=== PATIENT | female | born 1990 | race Caucasian/White ===

== ENCOUNTER 2017-12-20 10:33 | Inpatient (IN) | payer BC ==
--- NOTE | 2017-12-20 10:50 | PCM.LDHP ---
<CurryBishopRhett - Last Filed: 12/20/17 12:29> L&D History of Present Illness - General Date of Service: 12/20/17 Admit Problem/Dx: Admission Diagnosis/Problem Admission Diagnosis/Problem Source of Information: Patient History Limitations: Reports: No Limitations - History of Present Illness Introduction:: Claire Mccormick is a pleasant 27 year old female who presents with contractions lasting every 5 minutes that she reports started early this AM. Timing/Duration: Reports: minutes:, sudden onset, constant/continuous, getting worse Location, : Reports: Lower back Quality: Reports: Ache, Throbbing Severity: Moderate Pain Score: 3 Context: Reports: Other Improves with: Reports: None Worsens with: Reports: Movement - Related Data Allergies/Adverse Reactions: Allergies Allergy/AdvReac Type Severity Reaction Status Date / Time No Known Allergies Allergy Verified 12/20/17 12:29 Home Medications: Home Meds Ferrous Sulfate 325 mg PO DAILY 12/20/17 [History] Pnv No.95/Ferrous Fum/Folic AC [ Multivitamin Tablet] 1 each PO DAILY [History] Promethazine HCl 12.5 - 25 mg PO Q6H 12/20/17 [History] hydrOXYzine HCl [Atarax] 25 mg PO QID 12/20/17 [History] Past Medical History HEENT History: Reports: None Respiratory History: Reports: Asthma (Patient reports a history of asthma which she uses an albuterol inhaler to treat symptoms) Gastrointestinal History: Reports: Cholelithiasis (Patient reports a large gallstone was noted on her 14 week ultra sound), Hemorrhoids, Other (See Below) (Patient reports constipation lasting the last 2 days and she reports she believes it may be related to her hemorrhoids.) : 5 Para: 3 LMP (Approximate): Unknown Other OB/BYN History: Patient is who presents at 38 weeks and 4 days gestation. H&P Review of Systems - Review of Systems: General: Reports: Weakness, Fatigue HEENT: Reports: No Symptoms Pulmonary: Reports: Shortness of Breath Cardiovascular: Reports: Palpitations (Patient reports she was recently prescribe an albuterol inhaler for asthma and reports that after she takes her dose for symptoms she will notice her heart beginning to race. She reports these episodes improve within minutes.) Gastrointestinal: Reports: Constipation, Hematochezia (Patient reports hemorrhoids and indicates the pain caused from these has led to her not passing any stool in the last 2 days.) Genitourinary: Reports: No Symptoms Musculoskeletal: Reports: Back Pain (Patient reports pain in her lower back with the onset of contractions. She describes the pain as sharp and ache, rates it a 3 out of 10, and denies any radiation.), Muscle Pain, Muscle Stiffness Skin: Reports: Change in Color Psychiatric: Reports: No Symptoms Neurological: Reports: No Symptoms Hematologic/Lymphatic: Reports: No Symptoms Immunologic: Reports: No Symptoms L&D Exam - OB Specific Fundal Height In cm: 38 Contraction Duration (sec): 60 sec Contraction Frequency (min): 5 min Contraction Intensity: Moderate to Strong Movement: Active Heart Tones: Present Heart Tones per Min: 130 Heart Rate (FHR) Variability: Moderate (6-25 bmp) Presentation: Vertex - Garcia Score Garcia Score Cervix Position: Posterior Garcia Score Consistency: Soft Garcia Score Effacement: 51-70% Garcia Score Dilation: 1-2 cm Garcia Score Infant's Station: -1 ,0 Garcia Score Total: 7 - Exam General: Alert, Oriented HEENT: Conjunctiva Clear, Hearing Intact, Mucosa Moist & [place], PERRLA Lungs: Clear to Auscultation, Normal Respiratory Effort Cardiovascular: Regular Rate, Regular Rhythm GI/Abdominal Exam: Soft, Non-Tender Rectal Exam: Hemorrhoids Extremities: Normal Inspection, Non-Tender, No Pedal Edema Skin: Warm, Dry, Intact Neurological: Cranial Nerves Intact, Reflexes Equal Bilateral Psychiatric: Alert, Normal Affect, Normal Mood - Problem List (1) 38 weeks gestation of SNOMED Code(s): 85700939 ICD Code: Z3A.38 - 38 WEEKS GESTATION OF Status: Acute Current Visit: Yes (2) Hemorrhoid SNOMED Code(s): 30071274 ICD Code: K64.9 - UNSPECIFIED HEMORRHOIDS Status: Acute Current Visit: Yes (3) Cholelithiasis SNOMED Code(s): 154658698 ICD Code: K80.20 - CALCULUS OF GALLBLADDER W/O CHOLECYSTITIS W/O OBSTRUCTION Status: Acute Current Visit: Yes (4) Rh negative status during , third trimester, single gestation SNOMED Code(s): 609097330 ICD Code: O09.893 - SUPERVISION OF OTHER HIGH RISK PREGNANCIES, THIRD TRIMESTER; Z67.91 - UNSPECIFIED BLOOD TYPE, RH NEGATIVE Status: Acute Current Visit: Yes Problem List Initiated/Reviewed/Updated: No Assessment/Plan Comment:: Labor and delivery. <Cisco Kidd - Last Filed: 12/20/17 13:47> L&D History of Present Illness - General Admit Problem/Dx: Admission Diagnosis/Problem Admission Diagnosis/Problem - History of Present Illness Introduction:: YVETTE 12/30/17 EGA 38w4d No H/O gush of fluid, no bleeding. GBS negative Social & Family History - Tobacco Use Smoking Status *Q: Former Smoker (Quit one half years ago.) - Recreational Drug Use Recreational Drug Use: No Drug Use in Last 12 Months: No Recreational Drug Type: Reports: Amphetamines (Speed) (Used in the past none during this .) H&P Review of Systems - Review of Systems: Review Of Systems: See Below L&D Exam - Exam Exam: See Below - Vital Signs Vital Signs: Last Vital Signs Temp 98.4 F 12/20/17 13:00 Pulse 114 H 12/20/17 13:00 Resp 20 12/20/17 13:00 BP 133/75 12/20/17 13:00 Pulse Ox - Patient Data Lab Results Last 24 hrs: Laboratory Results - last 24 hr 12/20/17 Range/Units 13:28 WBC 8.09 (3.98-10.04) K/mm3 RBC 4.28 (3.98-5.22) M/mm3 Hgb 11.0 L (11.2-15.7) gm/L Hct 33.5 L (34.1-44.9) % MCV 78.3 L (79.4-94.8) fl MCH 25.7 (25.6-32.2) pg MCHC 32.8 (32.2-35.5) g/dl RDW Std Deviation 43.0 (36.4-46.3) fL Plt Count 281 (182-369) K/mm3 MPV 10.4 (9.4-12.3) fl Neut % (Auto) 78.2 H (34.0-71.1) % Lymph % (Auto) 13.7 L (19.3-51.7) % [place] % (Auto) 5.7 (4.7-12.5) % Eos % (Auto) 1.4 (0.7-5.8) Baso % (Auto) 0.4 (0.1-1.2) % Neut # (Auto) 6.33 H (1.56-6.13) K/mm3 Lymph # (Auto) 1.11 L (1.18-3.74) K/mm3 [place] # (Auto) 0.46 H (0.24-0.36) K/mm3 Eos # (Auto) 0.11 (0.04-0.36) K/mm3 Baso # (Auto) 0.03 (0.01-0.08) K/mm3 Result Diagrams: 12/20/17 13:28 Orders Last 24hrs: Active Orders 24 hr Category Date Time Status Patient Status Manage Transfer [TRANSFER] Routine ADT 12/20/17 12:56 Active Activity as Tolerated [RC] PFP Care 12/20/17 13:17 Active Communication Order [RC] ASDIRECTED Care 12/20/17 13:17 Active Heart Tones [RC] ASDIRECTED Care 12/20/17 13:17 Active Notify Provider [RC] PFP Care 12/20/17 13:17 Active Notify Provider [RC] PRN Care 12/20/17 13:17 Active Peripheral IV Care [RC] . DIRECTED Care 12/20/17 13:17 Active Vital Signs [RC] PER UNIT ROUTINE Care 12/20/17 13:17 Active Regular Diet [DIET] Diet 12/20/17 Dinner Active Calcium Carbonate [Tums] Med 12/20/17 13:17 Active 1,000 mg PO Q2H PRN Lactated Ringers [Ringers, Lactated] 1,000 ml Med 12/20/17 13:30 Active IV ASDIRECTED Lidocaine 1% [Xylocaine 1%] Med 12/20/17 13:17 Active 50 ml INJECT ONETIME PRN Oxytocin/Lactated Ringers [Pitocin in LR 10 Units/1,000 Med 12/20/17 13:30 Active ML] 10 unit in 1,000 ml IV .CONTINUOUS Oxytocin/Lactated Ringers [Pitocin in LR 10 Units/1,000 Med 12/20/17 13:45 Active ML] 10 unit in 1,000 ml IV TITRATE Sodium Chloride 0.9% [Saline Flush] Med 12/20/17 13:17 Active 10 ml FLUSH ASDIRECTED PRN Electronic Heart Tones Ext w TOCO [WOMSER] Oth 12/20/17 13:17 Ordered Routine Electronic Heart Tones Internal [WOMSER] Per Unit Oth 12/20/17 13:17 Ordered Routine Peripheral IV Insertion Adult [OM.PC] Routine Oth 12/20/17 13:17 Ordered Resuscitation Status Routine Resus Stat 12/20/17 12:57 Ordered Medication Orders Calcium Carbonate/Glycine (Tums) 1,000 mg PO Q2H PRN PRN Reason: Indigestion Lactated Ringer's (Ringers, Lactated) 1,000 mls @ 100 mls/hr IV ASDIRECTED SRAVANI Last Admin: 12/20/17 13:25 Dose: 100 mls/hr Oxytocin/Lactated Ringer's (Pitocin In Lr 10 Units/1,000 Ml) 10 unit in 1,000 mls @ 500 mls/hr IV .CONTINUOUS SRAVANI Oxytocin/Lactated Ringer's (Pitocin In Lr 10 Units/1,000 Ml) 10 unit in 1,000 mls @ 12 mls/hr IV TITRATE SRAVANI Last Admin: 12/20/17 13:20 Dose: 12 mls/hr Lidocaine HCl (Xylocaine 1%) 50 ml INJECT ONETIME PRN PRN Reason: Breakthrough Pain Sodium Chloride (Saline Flush) 10 ml FLUSH ASDIRECTED PRN PRN Reason: Keep Vein Open Last Admin: 12/20/17 13:25 Dose: 10 ml Assessment/Plan Comment:: Patient was seen, examined by me and discussed with the student.
[2017-12-20] MEDS ORDERED: Oxytocin/Lactated Ringers 10 UNIT/1,000 ML BAG IV ONE (13:06)
[2017-12-20] MEDS ORDERED: Lactated Ringers 1,000 ML ONE (13:06)
[2017-12-20] MEDS ORDERED: Sodium Chloride 0.9% 10 ML Syringe FLUSH PRN ×2 (13:17→19:34)
[2017-12-20] MEDS ORDERED: Calcium Carbonate 500 MG Tab.Chew PO PRN (13:17)
[2017-12-20] MEDS ORDERED: Lidocaine 1% 50 ML MDV INJECT PRN (13:17)
[2017-12-20] MEDS ORDERED: Oxytocin/Lactated Ringers 10 UNIT/1,000 ML BAG IV SCH ×3 (13:30→19:34)
[2017-12-20] MEDS ORDERED: Lactated Ringers 1,000 ML IV SCH ×2 (13:30→19:34)
--- NOTE | 2017-12-20 16:32 | PCM.SN ---
- Free Text/Narrative Note: Initial attempt of amniotomy at 1245 did not produce free flow amnionic fluid. Repeat exam now at extending 25 amniotomy performed clear fluid noted cervix 2- 3 cm dilated 70% effaced posterior soft cephalic presentation.
[2017-12-20] MEDS ORDERED: ePHEDrine 50 MG/ML SDV IVPUSH PRN (17:08)
[2017-12-20] MEDS ORDERED: Ondansetron 4 MG/2 ML SDV IVPUSH PRN ×2 (17:08→19:34)
[2017-12-20] MEDS ORDERED: fentaNYL 100 MCG/2 ML SDV EPIDUR PRN (17:08)
[2017-12-20] MEDS ORDERED: diphenhydrAMINE 50 MG/ML SDV IVPUSH PRN (17:08)
--- NOTE | 2017-12-20 17:11 | PCM.PREANE ---
Preanesthetic Assessment - Procedure Proposed Procedure: Labor Epidural - Anesthesia/Transfusion/Family Hx Anesthesia History: No Prior Anesthesia Family History of Anesthesia Reaction: No Transfusion History: No Prior Transfusion(s) - Review of Systems General: No Symptoms Cardiovascular: Palpitations Gastrointestinal: Other (Heart burn with ) Other: Reports: Thyroid Problems (hypothyroidism on synthroid) - Physical Assessment Pulse: 89 Respiratory Rate: 20 Blood Pressure: 122/68 Vital Signs: Last Vital Signs Temp 36.9 C 12/20/17 13:00 Pulse 89 12/20/17 14:30 Resp 20 12/20/17 13:00 BP 122/68 12/20/17 14:30 Pulse Ox Height: 1.65 m Weight: 98.43 kg ASA Class: 2 Mental Status: Alert & Oriented x3 Airway Class: Mallampati = 1 Dentition: Reports: Normal Dentition (Dentist mentioned a loose tooth on the bottom. None feel loose to Claire. ) Thyro-Mental Finger Breadths: 3 Mouth Opening Finger Breadths: 3 ROM/Head Extension: Full Lungs: Clear to Auscultation, Normal Respiratory Effort Cardiovascular: Regular Rate, Regular Rhythm - Lab Values: Laboratory Last Values WBC 8.09 K/mm3 (3.98-10.04) 12/20/17 13:28 RBC 4.28 M/mm3 (3.98-5.22) 12/20/17 13:28 Hgb 11.0 gm/L (11.2-15.7) L 12/20/17 13:28 Hct 33.5 % (34.1-44.9) L 12/20/17 13:28 MCV 78.3 fl (79.4-94.8) L 12/20/17 13:28 MCH 25.7 pg (25.6-32.2) 12/20/17 13:28 MCHC 32.8 g/dl (32.2-35.5) 12/20/17 13:28 RDW Std Deviation 43.0 fL (36.4-46.3) 12/20/17 13:28 Plt Count 281 K/mm3 (182-369) 12/20/17 13:28 MPV 10.4 fl (9.4-12.3) 12/20/17 13:28 Neut % (Auto) 78.2 % (34.0-71.1) H 12/20/17 13:28 Lymph % (Auto) 13.7 % (19.3-51.7) L 12/20/17 13:28 [place] % (Auto) 5.7 % (4.7-12.5) 12/20/17 13:28 Eos % (Auto) 1.4 (0.7-5.8) 12/20/17 13:28 Baso % (Auto) 0.4 % (0.1-1.2) 12/20/17 13:28 Neut # (Auto) 6.33 K/mm3 (1.56-6.13) H 12/20/17 13:28 Lymph # (Auto) 1.11 K/mm3 (1.18-3.74) L 12/20/17 13:28 [place] # (Auto) 0.46 K/mm3 (0.24-0.36) H 12/20/17 13:28 Eos # (Auto) 0.11 K/mm3 (0.04-0.36) 12/20/17 13:28 Baso # (Auto) 0.03 K/mm3 (0.01-0.08) 12/20/17 13:28 - Allergies Allergies/Adverse Reactions: Allergies Allergy/AdvReac Type Severity Reaction Status Date / Time No Known Allergies Allergy Verified 12/20/17 12:29 - Acknowledgements Anesthesia Type Planned: Epidural Pt an Appropriate Candidate for the Planned Anesthesia: Yes Alternatives and Risks of Anesthesia Discussed w Pt/Guardian: Yes Pt/Guardian Understands and Agrees with Anesthesia Plan: Yes PreAnesthesia Questionnaire HEENT History: Reports: None Cardiovascular History: Reports: None Respiratory History: Reports: Asthma (Patient reports a history of asthma which she uses an albuterol inhaler to treat symptoms) Other Respiratory History: seasonal allergies Gastrointestinal History: Reports: Cholelithiasis (Patient reports a large gallstone was noted on her 14 week ultra sound), Hemorrhoids, Other (See Below) (Patient reports constipation lasting the last 2 days and she reports she believes it may be related to her hemorrhoids.) Genitourinary History: Reports: None [employer] History: Reports: Other OB/BYN History: Patient is who presents at 38 weeks and 4 days gestation. Psychiatric History: Reports: Anxiety, Depression Endocrine/Metabolic History: Reports: Hypothyroidism Hematologic History: Reports: Anemia - Past Surgical History HEENT Surgical History: Reports: None Cardiovascular Surgical History: Reports: None Respiratory Surgical History: Reports: None GI Surgical History: Reports: None Female Surgical History: Reports: None Endocrine Surgical History: Reports: None - SUBSTANCE USE Smoking Status *Q: Former Smoker Tobacco Use Within Last Twelve Months: No Second Hand Smoke Exposure: No Recreational Drug Use History: Yes Recreational Drug Type: Reports: Methamphetamine Recreational Drug Last Use: 2011 - HOME MEDS Home Medications: Home Meds Ferrous Sulfate 325 mg PO DAILY 12/20/17 [History] Pnv No.95/Ferrous Fum/Folic AC [ Multivitamin Tablet] 1 each PO DAILY [History] Promethazine HCl 12.5 - 25 mg PO Q6H 12/20/17 [History] hydrOXYzine HCl [Atarax] 25 mg PO QID 12/20/17 [History] - CURRENT (IN HOUSE) MEDS Current Meds: Current Medications Calcium Carbonate/Glycine (Tums) 1,000 mg PO Q2H PRN PRN Reason: Indigestion Diphenhydramine HCl (Benadryl) 25 mg IVPUSH Q6H PRN PRN Reason: Pruritis Ephedrine Sulfate (Ephedrine Sulfate) 5 mg IVPUSH ASDIRECTED PRN PRN Reason: Hypotension Fentanyl (Sublimaze) 100 mcg EPIDUR ONETIME PRN PRN Reason: Pain Fentanyl/Bupivacaine HCl (Fentanyl/Bupivacaine/Ns 2 Mcg-0.125% 100 Ml) 100 ml EPIDUR ASDIRECTED SRAVANI Lactated Ringer's (Ringers, Lactated) 1,000 mls @ 100 mls/hr IV ASDIRECTED SRAVANI Last Admin: 12/20/17 13:25 Dose: 100 mls/hr Oxytocin/Lactated Ringer's (Pitocin In Lr 10 Units/1,000 Ml) 10 unit in 1,000 mls @ 500 mls/hr IV .CONTINUOUS SRAVANI Oxytocin/Lactated Ringer's (Pitocin In Lr 10 Units/1,000 Ml) 10 unit in 1,000 mls @ 12 mls/hr IV TITRATE SRAVANI Last Infusion: 12/20/17 15:32 Dose: 48 mls/hr Lidocaine HCl (Xylocaine 1%) 50 ml INJECT ONETIME PRN PRN Reason: Breakthrough Pain Ondansetron HCl (Zofran) 4 mg IVPUSH ONETIME PRN PRN Reason: Nausea/Vomiting Sodium Chloride (Saline Flush) 10 ml FLUSH ASDIRECTED PRN PRN Reason: Keep Vein Open Last Admin: 12/20/17 13:25 Dose: 10 ml Discontinued Medications Lactated Ringer's (Ringers, Lactated) Confirm Administered Dose 1,000 mls @ as directed .ROUTE .[employer] ONE Stop: 12/20/17 13:07 Last Admin: 12/20/17 13:25 Dose: Not Given Oxytocin/Lactated Ringer's (Pitocin In Lr 10 Units/1,000 Ml) Confirm Administered Dose 10 unit in 1,000 mls @ as directed IV .[employer] ONE Stop: 12/20/17 13:07 Last Admin: 12/20/17 13:25 Dose: Not Given Oxytocin 10 unit/ Lactated (Ringer's) 1,001 mls @ 12.01 mls/hr IV TITRATE SRAVANI; 2 MUNITS/MIN PRN Reason: Protocol
[2017-12-20] MEDS ORDERED: Bupivacaine/fentaNYL/NS 100 ML Bag EPIDUR SCH (17:15)
--- NOTE | 2017-12-20 19:28 | PCM.DEL ---
L & D Note - General Info Date of Service: 12/20/17 Mother's Due Date: 12/30/17 - Delivery Note Labor: Spontaneous, Augmented by ARM Cervical Ripening Method: Oxytocin Delivery Outcome: Livebirth (Female liveborn right occiput anterior and delivered at 1912 hrs. Thursday12/20/17 Apgars 8/9. Weight 30/4/60 grams/7 lbs. 10 oz.) Delivery Method: Spontaneous Vaginal Delivery-Single Delivery Mode: Spontaneous Type of Forceps Used: NA Presentation: Right Occiput Anterior (EFRAIN) Nuchal Cord: None Prep: Povidone-Iodine (Betadine Anesthesia Type: Epidural Episiotomy Type: None Laceration: None Placenta: Intact, Spontaneous (Delivery at 1916 hrs. Thursday12/20/17 Rdz examined and intact discarded) Cord: 3 Vessels Estimated Blood Loss: 250 Resuscitation Needed: No [place]: Suctioned, Bulb Syringe, Stimulated, Warmed, [place] Used, Warmer Used Provider: Cisco Kidd Score 1 min: 8 Score 5 min: 9 - Patient Data Vitals - Most Recent: Last Vital Signs Temp 98.4 F 12/20/17 13:00 Pulse 89 12/20/17 17:51 Resp 20 12/20/17 17:51 BP 122/68 12/20/17 17:51 Pulse Ox Weight - Most Recent: 217 lb I&O - Last 24 Hours: Intake & Output 12/20/17 12/20/17 12/20/17 06:59 14:59 22:59 Intake Total 1000 Balance 1000 Lab Results Last 24 Hours: Laboratory Results - last 24 hr 12/20/17 Range/Units 13:28 WBC 8.09 (3.98-10.04) K/mm3 RBC 4.28 (3.98-5.22) M/mm3 Hgb 11.0 L (11.2-15.7) gm/L Hct 33.5 L (34.1-44.9) % MCV 78.3 L (79.4-94.8) fl MCH 25.7 (25.6-32.2) pg MCHC 32.8 (32.2-35.5) g/dl RDW Std Deviation 43.0 (36.4-46.3) fL Plt Count 281 (182-369) K/mm3 MPV 10.4 (9.4-12.3) fl Neut % (Auto) 78.2 H (34.0-71.1) % Lymph % (Auto) 13.7 L (19.3-51.7) % [place] % (Auto) 5.7 (4.7-12.5) % Eos % (Auto) 1.4 (0.7-5.8) Baso % (Auto) 0.4 (0.1-1.2) % Neut # (Auto) 6.33 H (1.56-6.13) K/mm3 Lymph # (Auto) 1.11 L (1.18-3.74) K/mm3 [place] # (Auto) 0.46 H (0.24-0.36) K/mm3 Eos # (Auto) 0.11 (0.04-0.36) K/mm3 Baso # (Auto) 0.03 (0.01-0.08) K/mm3 Med Orders - Current: Current Medications Calcium Carbonate/Glycine (Tums) 1,000 mg PO Q2H PRN PRN Reason: Indigestion Diphenhydramine HCl (Benadryl) 25 mg IVPUSH Q6H PRN PRN Reason: Pruritis Ephedrine Sulfate (Ephedrine Sulfate) 5 mg IVPUSH ASDIRECTED PRN PRN Reason: Hypotension Fentanyl (Sublimaze) 100 mcg EPIDUR ONETIME PRN PRN Reason: Pain Last Admin: 12/20/17 17:27 Dose: 100 mcg Fentanyl/Bupivacaine HCl (Fentanyl/Bupivacaine/Ns 2 Mcg-0.125% 100 Ml) 100 ml EPIDUR ASDIRECTED SRAVANI Last Admin: 12/20/17 17:27 Dose: 100 ml Lactated Ringer's (Ringers, Lactated) 1,000 mls @ 100 mls/hr IV ASDIRECTED SRAVANI Last Admin: 12/20/17 13:25 Dose: 100 mls/hr Oxytocin/Lactated Ringer's (Pitocin In Lr 10 Units/1,000 Ml) 10 unit in 1,000 mls @ 500 mls/hr IV .CONTINUOUS SRAVANI Oxytocin/Lactated Ringer's (Pitocin In Lr 10 Units/1,000 Ml) 10 unit in 1,000 mls @ 12 mls/hr IV TITRATE SRAVANI Last Infusion: 12/20/17 15:32 Dose: 48 mls/hr Lidocaine HCl (Xylocaine 1%) 50 ml INJECT ONETIME PRN PRN Reason: Breakthrough Pain Ondansetron HCl (Zofran) 4 mg IVPUSH ONETIME PRN PRN Reason: Nausea/Vomiting Sodium Chloride (Saline Flush) 10 ml FLUSH ASDIRECTED PRN PRN Reason: Keep Vein Open Last Admin: 12/20/17 13:25 Dose: 10 ml Discontinued Medications Lactated Ringer's (Ringers, Lactated) Confirm Administered Dose 1,000 mls @ as directed .ROUTE .STK-[facility] ONE Stop: 12/20/17 13:07 Last Admin: 12/20/17 13:25 Dose: Not Given Oxytocin/Lactated Ringer's (Pitocin In Lr 10 Units/1,000 Ml) Confirm Administered Dose 10 unit in 1,000 mls @ as directed IV .STK-[facility] ONE Stop: 12/20/17 13:07 Last Admin: 12/20/17 13:25 Dose: Not Given Oxytocin 10 unit/ Lactated (Ringer's) 1,001 mls @ 12.01 mls/hr IV TITRATE SRAVANI; 2 MUNITS/MIN PRN Reason: Protocol - Problem List & Annotations (1) Normal delivery at term SNOMED Code(s): 32790916 Code(s): O80 - ENCOUNTER FOR FULL-TERM UNCOMPLICATED DELIVERY Status: Acute Current Visit: Yes (2) 38 weeks gestation of SNOMED Code(s): 40226942 Code(s): Z3A.38 - 38 WEEKS GESTATION OF Status: Acute Current Visit: Yes (3) Cholelithiasis SNOMED Code(s): 701694636 Code(s): K80.20 - CALCULUS OF GALLBLADDER W/O CHOLECYSTITIS W/O OBSTRUCTION Status: Acute Current Visit: Yes (4) Hemorrhoid SNOMED Code(s): 21771905 Code(s): K64.9 - UNSPECIFIED HEMORRHOIDS Status: Acute Current Visit: Yes (5) Rh negative status during , third trimester, single gestation SNOMED Code(s): 231029821 Code(s): O09.893 - SUPERVISION OF OTHER HIGH RISK PREGNANCIES, THIRD TRIMESTER; Z67.91 - UNSPECIFIED BLOOD TYPE, RH NEGATIVE Status: Acute Current Visit: Yes - Problem List Review Problem List Initiated/Reviewed/Updated: No - My Orders Last 24 Hours: My Active Orders 12/20/17 12:56 Patient Status Manage Transfer [TRANSFER] Routine 12/20/17 12:57 Resuscitation Status Routine 12/20/17 13:17 Activity as Tolerated [RC] PFP Communication Order [RC] ASDIRECTED Notify Provider [RC] PFP Notify Provider [RC] PRN Peripheral IV Care [RC] Q2HR Vital Signs [RC] 04,12,20 Calcium Carbonate [Tums] 1,000 mg PO Q2H PRN Lidocaine 1% [Xylocaine 1%] 50 ml INJECT ONETIME PRN Sodium Chloride 0.9% [Saline Flush] 10 ml FLUSH ASDIRECTED PRN Electronic Heart Tones Ext w TOCO [WOMSER] Routine Electronic Heart Tones Internal [WOMSER] Per Unit Routine Peripheral IV Insertion Adult [OM.PC] Routine 12/20/17 13:30 Lactated Ringers [Ringers, Lactated] 1,000 ml IV ASDIRECTED Oxytocin/Lactated Ringers [Pitocin in LR 10 Units/1,000 ML] 10 unit in 1,000 ml IV .CONTINUOUS 12/20/17 13:45 Oxytocin/Lactated Ringers [Pitocin in LR 10 Units/1,000 ML] 10 unit in 1,000 ml IV TITRATE 12/20/17 Dinner Regular Diet [DIET] - Plan Plan:: Patient was seen, examined by me and discussed with the student.
[2017-12-20] MEDS ORDERED: Docusate Sodium 100 MG Cap PO PRN ×2 (19:31→19:41)
[2017-12-20] MEDS ORDERED: Ibuprofen 600 MG Tab PO PRN (19:31)
[2017-12-20] MEDS ORDERED: Witch Hazel Medicated Pads 100/Jar TOP PRN ×2 (19:31→19:41)
[2017-12-20] MEDS ORDERED: Acetaminophen 325 MG Tab PO PRN ×2 (19:31→19:41)
[2017-12-20] MEDS ORDERED: Lanolin 100% Cream 7 GM Tube TOP PRN ×2 (19:31→19:41)
[2017-12-20] MEDS ORDERED: Benzocaine/Menthol 20%-0.5% Spray 56 GM Canister TOP PRN ×2 (19:31→19:41)
[2017-12-20] MEDS ORDERED: Hydrocortisone Acetate 25 MG Supp RECTAL PRN ×3 (19:31→19:41)
[2017-12-20] MEDS ORDERED: Nalbuphine 20 MG/1 ML Amp IVPUSH PRN (19:34)
[2017-12-20] MEDS ORDERED: Oxytocin 10 Units/1 ML SDV IM ONE (19:34)
[2017-12-20] MEDS ORDERED: Bupivacaine 0.25% 10 ML SDV ONE (22:32)
[2017-12-20] MEDS: Ibuprofen 600 MG Tab PO PRN (23:33)
[2017-12-21] MEDS: Ibuprofen 600 MG Tab PO PRN ×2 (05:54→13:56)
--- NOTE | 2017-12-21 07:33 | PCM48HPAN ---
Post Anesthesia Note - EVALUATION WITHIN 48HRS OF ANESTHETIC Vital Signs in Normal Range: Yes Patient Participated in Evaluation: Yes Respiratory Function Stable: Yes Airway Patent: Yes Cardiovascular Function Stable: Yes Hydration Status Stable: Yes Pain Control Satisfactory: Yes Nausea and Vomiting Control Satisfactory: Yes Mental Status Recovered: Yes Pulse Rate: 66 Resp Rate: 20 Temperature: 97.7 F Blood Pressure: 130/75
--- NOTE | 2017-12-21 08:19 | PCM.DCSUM1 ---
Discharge Summary - Hospital Course Free Text/Narrative:: [facility] LIVE L/D Delivery Note Patient Name: JAIRO DEL RIO Date of : 88 Patient Status: Inpatient Attending Provider: Cisco Kidd Date: 12/20/17 19:23 Initialization Date: 12/20/17 19:23 L & D Note - General Info Date of Service: 12/20/17 Mother's Due Date: 12/30/17 - Delivery Note Labor: Spontaneous, Augmented by ARM Cervical Ripening Method: Oxytocin Delivery Outcome: Livebirth (Female liveborn right occiput anterior and delivered at 1912 hrs. Thursday12/20/17 Apgars 8/9. Weight 30/4/60 grams/7 lbs. 10 oz.) Infant Delivery Method: Spontaneous Vaginal Delivery-Single Infant Delivery Mode: Spontaneous Type of Forceps Used: NA Presentation: Right Occiput Anterior (EFRAIN) Nuchal Cord: None Prep: Povidone-Iodine (Betadine Anesthesia Type: Epidural Episiotomy Type: None Laceration: None Placenta: Intact, Spontaneous (Delivery at 1917 hrs. Thursday12/20/17 Rdz examined and intact discarded) Cord: 3 Vessels Estimated Blood Loss: 250 Resuscitation Needed: No [place]: Suctioned, Bulb Syringe, Stimulated, Warmed, [place] Used, Warmer Used Provider: Cisco Kidd Score 1 min: 8 Score 5 min: 9 - Patient Data Vitals - Most Recent: Last Vital Signs Temp 98.4 F 12/20/17 13:00 Pulse 89 12/20/17 17:51 Resp 20 12/20/17 17:51 BP 122/68 12/20/17 17:51 Pulse Ox Weight - Most Recent: 217 lb I&O - Last 24 Hours: Intake & Output 12/20/17 12/20/17 12/20/17 06:59 14:59 22:59 Intake Total 1000 Balance 1000 Lab Results Last 24 Hours: Laboratory Results - last 24 hr 12/20/17 Range/Units 13:28 WBC 8.09 (3.98-10.04) K/mm3 RBC 4.28 (3.98-5.22) M/mm3 Hgb 11.0 L (11.2-15.7) gm/L Hct 33.5 L (34.1-44.9) % MCV 78.3 L (79.4-94.8) fl MCH 25.7 (25.6-32.2) pg MCHC 32.8 (32.2-35.5) g/dl RDW Std Deviation 43.0 (36.4-46.3) fL Plt Count 281 (182-369) K/mm3 MPV 10.4 (9.4-12.3) fl Neut % (Auto) 78.2 H (34.0-71.1) % Lymph % (Auto) 13.7 L (19.3-51.7) % Clinch % (Auto) 5.7 (4.7-12.5) % Eos % (Auto) 1.4 (0.7-5.8) Baso % (Auto) 0.4 (0.1-1.2) % Neut # (Auto) 6.33 H (1.56-6.13) K/mm3 Lymph # (Auto) 1.11 L (1.18-3.74) K/mm3 Clinch # (Auto) 0.46 H (0.24-0.36) K/mm3 Eos # (Auto) 0.11 (0.04-0.36) K/mm3 Baso # (Auto) 0.03 (0.01-0.08) K/mm3 Med Orders - Current: Current Medications Calcium Carbonate/Glycine (Tums) 1,000 mg PO Q2H PRN PRN Reason: Indigestion Diphenhydramine HCl (Benadryl) 25 mg IVPUSH Q6H PRN PRN Reason: Pruritis Ephedrine Sulfate (Ephedrine Sulfate) 5 mg IVPUSH ASDIRECTED PRN PRN Reason: Hypotension Fentanyl (Sublimaze) 100 mcg EPIDUR ONETIME PRN PRN Reason: Pain Last Admin: 12/20/17 17:27 Dose: 100 mcg Fentanyl/Bupivacaine HCl (Fentanyl/Bupivacaine/Ns 2 Mcg-0.125% 100 Ml) 100 ml EPIDUR ASDIRECTED [facility] Last Admin: 12/20/17 17:27 Dose: 100 ml Lactated Ringer's (Ringers, Lactated) 1,000 mls @ 100 mls/hr IV ASDIRECTED [facility] Last Admin: 12/20/17 13:25 Dose: 100 mls/hr Oxytocin/Lactated Ringer's (Pitocin In Lr 10 Units/1,000 Ml) 10 unit in 1,000 mls @ 500 mls/hr IV .CONTINUOUS SRAVANI Oxytocin/Lactated Ringer's (Pitocin In Lr 10 Units/1,000 Ml) 10 unit in 1,000 mls @ 12 mls/hr IV TITRATE SRAVANI Last Infusion: 12/20/17 15:32 Dose: 48 mls/hr Lidocaine HCl (Xylocaine 1%) 50 ml INJECT ONETIME PRN PRN Reason: Breakthrough Pain Ondansetron HCl (Zofran) 4 mg IVPUSH ONETIME PRN PRN Reason: Nausea/Vomiting Sodium Chloride (Saline Flush) 10 ml FLUSH ASDIRECTED PRN PRN Reason: Keep Vein Open Last Admin: 12/20/17 13:25 Dose: 10 ml Discontinued Medications Lactated Ringer's (Ringers, Lactated) Confirm Administered Dose 1,000 mls @ as directed .ROUTE .STK-MED ONE Stop: 12/20/17 13:07 Last Admin: 12/20/17 13:25 Dose: Not Given Oxytocin/Lactated Ringer's (Pitocin In Lr 10 Units/1,000 Ml) Confirm Administered Dose 10 unit in 1,000 mls @ as directed IV .STK-MED ONE Stop: 12/20/17 13:07 Last Admin: 12/20/17 13:25 Dose: Not Given Oxytocin 10 unit/ Lactated (Ringer's) 1,001 mls @ 12.01 mls/hr IV TITRATE SRAVANI; 2 MUNITS/MIN PRN Reason: Protocol - Problem List & Annotations (1) Normal delivery at term SNOMED Code(s): 90241067 Code(s): O80 - ENCOUNTER FOR FULL-TERM UNCOMPLICATED DELIVERY Status: Acute Current Visit: Yes (2) 38 weeks gestation of SNOMED Code(s): 50476448 Code(s): Z3A.38 - 38 WEEKS GESTATION OF Status: Acute Current Visit: Yes (3) Cholelithiasis SNOMED Code(s): 998923763 Code(s): K80.20 - CALCULUS OF GALLBLADDER W/O CHOLECYSTITIS W/O OBSTRUCTION Status: Acute Current Visit: Yes (4) Hemorrhoid SNOMED Code(s): 41947085 Code(s): K64.9 - UNSPECIFIED HEMORRHOIDS Status: Acute Current Visit: Yes (5) Rh negative status during , third trimester, single gestation SNOMED Code(s): 613984197 Code(s): O09.893 - SUPERVISION OF OTHER HIGH RISK PREGNANCIES, THIRD TRIMESTER; Z67.91 - UNSPECIFIED BLOOD TYPE, RH NEGATIVE Status: Acute Current Visit: Yes - Problem List Review Problem List Initiated/Reviewed/Updated: No - My Orders Last 24 Hours: My Active Orders 12/20/17 12:56 Patient Status Manage Transfer [TRANSFER] Routine 12/20/17 12:57 Resuscitation Status Routine 12/20/17 13:17 Activity as Tolerated [RC] PFP Communication Order [RC] ASDIRECTED Notify Provider [RC] PFP Notify Provider [RC] PRN Peripheral IV Care [RC] Q2HR Vital Signs [RC] 04,12,20 Calcium Carbonate [Tums] 1,000 mg PO Q2H PRN Lidocaine 1% [Xylocaine 1%] 50 ml INJECT ONETIME PRN Sodium Chloride 0.9% [Saline Flush] 10 ml FLUSH ASDIRECTED PRN Electronic Heart Tones Ext w TOCO [WOMSER] Routine Electronic Heart Tones Internal [WOMSER] Per Unit Routine Peripheral IV Insertion Adult [OM.PC] Routine 12/20/17 13:30 Lactated Ringers [Ringers, Lactated] 1,000 ml IV ASDIRECTED Oxytocin/Lactated Ringers [Pitocin in LR 10 Units/1,000 ML] 10 unit in 1,000 ml IV .CONTINUOUS 12/20/17 13:45 Oxytocin/Lactated Ringers [Pitocin in LR 10 Units/1,000 ML] 10 unit in 1,000 ml IV TITRATE 12/20/17 Dinner Regular Diet [DIET] - Plan Plan:: Patient was seen, examined by me and discussed with the student. HPI Initial Comments: [facility] LIVE L/D Delivery Note Patient Name: JAIRO DEL RIO Date of : 88 Patient Status: Inpatient Attending Provider: Cisco Kidd Date: 12/20/17 19:23 Initialization Date: 12/20/17 19:23 L & D Note - General Info Date of Service: 12/20/17 Mother's Due Date: 12/30/17 - Delivery Note Labor: Spontaneous, Augmented by ARM Cervical Ripening Method: Oxytocin Delivery Outcome: Livebirth (Female liveborn right occiput anterior and delivered at 1912 hrs. Thursday12/20/17 Apgars 8/9. Weight 30/4/60 grams/7 lbs. 10 oz.) Infant Delivery Method: Spontaneous Vaginal Delivery-Single Delivery Mode: Spontaneous Type of Forceps Used: NA Presentation: Right Occiput Anterior (EFRAIN) Nuchal Cord: None Prep: Povidone-Iodine (Betadine Anesthesia Type: Epidural Episiotomy Type: None Laceration: None Placenta: Intact, Spontaneous (Delivery at 7 hrs. Thursday12/20/17 Rdz examined and intact discarded) Cord: 3 Vessels Estimated Blood Loss: 250 Resuscitation Needed: No [place]: Suctioned, Bulb Syringe, Stimulated, Warmed, [place] Used, Warmer Used Provider: Cisco Kidd Score 1 min: 8 Score 5 min: 9 - Patient Data Vitals - Most Recent: Last Vital Signs Temp 98.4 F 12/20/17 13:00 Pulse 89 12/20/17 17:51 Resp 20 12/20/17 17:51 BP 122/68 12/20/17 17:51 Pulse Ox Weight - Most Recent: 217 lb I&O - Last 24 Hours: Intake & Output 12/20/17 12/20/17 12/20/17 06:59 14:59 22:59 Intake Total 1000 Balance 1000 Lab Results Last 24 Hours: Laboratory Results - last 24 hr 12/20/17 Range/Units 13:28 WBC 8.09 (3.98-10.04) K/mm3 RBC 4.28 (3.98-5.22) M/mm3 Hgb 11.0 L (11.2-15.7) gm/L Hct 33.5 L (34.1-44.9) % MCV 78.3 L (79.4-94.8) fl MCH 25.7 (25.6-32.2) pg MCHC 32.8 (32.2-35.5) g/dl RDW Std Deviation 43.0 (36.4-46.3) fL Plt Count 281 (182-369) K/mm3 MPV 10.4 (9.4-12.3) fl Neut % (Auto) 78.2 H (34.0-71.1) % Lymph % (Auto) 13.7 L (19.3-51.7) % Clinch % (Auto) 5.7 (4.7-12.5) % Eos % (Auto) 1.4 (0.7-5.8) Baso % (Auto) 0.4 (0.1-1.2) % Neut # (Auto) 6.33 H (1.56-6.13) K/mm3 Lymph # (Auto) 1.11 L (1.18-3.74) K/mm3 Clinch # (Auto) 0.46 H (0.24-0.36) K/mm3 Eos # (Auto) 0.11 (0.04-0.36) K/mm3 Baso # (Auto) 0.03 (0.01-0.08) K/mm3 Med Orders - Current: Current Medications Calcium Carbonate/Glycine (Tums) 1,000 mg PO Q2H PRN PRN Reason: Indigestion Diphenhydramine HCl (Benadryl) 25 mg IVPUSH Q6H PRN PRN Reason: Pruritis Ephedrine Sulfate (Ephedrine Sulfate) 5 mg IVPUSH ASDIRECTED PRN PRN Reason: Hypotension Fentanyl (Sublimaze) 100 mcg EPIDUR ONETIME PRN PRN Reason: Pain Last Admin: 12/20/17 17:27 Dose: 100 mcg Fentanyl/Bupivacaine HCl (Fentanyl/Bupivacaine/Ns 2 Mcg-0.125% 100 Ml) 100 ml EPIDUR ASDIRECTED [facility] Last Admin: 12/20/17 17:27 Dose: 100 ml Lactated Ringer's (Ringers, Lactated) 1,000 mls @ 100 mls/hr IV ASDIRECTED [facility] Last Admin: 12/20/17 13:25 Dose: 100 mls/hr Oxytocin/Lactated Ringer's (Pitocin In Lr 10 Units/1,000 Ml) 10 unit in 1,000 mls @ 500 mls/hr IV .CONTINUOUS SRAVANI Oxytocin/Lactated Ringer's (Pitocin In Lr 10 Units/1,000 Ml) 10 unit in 1,000 mls @ 12 mls/hr IV TITRATE SRAVANI Last Infusion: 12/20/17 15:32 Dose: 48 mls/hr Lidocaine HCl (Xylocaine 1%) 50 ml INJECT ONETIME PRN PRN Reason: Breakthrough Pain Ondansetron HCl (Zofran) 4 mg IVPUSH ONETIME PRN PRN Reason: Nausea/Vomiting Sodium Chloride (Saline Flush) 10 ml FLUSH ASDIRECTED PRN PRN Reason: Keep Vein Open Last Admin: 12/20/17 13:25 Dose: 10 ml Discontinued Medications Lactated Ringer's (Ringers, Lactated) Confirm Administered Dose 1,000 mls @ as directed .ROUTE .STK-MED ONE Stop: 12/20/17 13:07 Last Admin: 12/20/17 13:25 Dose: Not Given Oxytocin/Lactated Ringer's (Pitocin In Lr 10 Units/1,000 Ml) Confirm Administered Dose 10 unit in 1,000 mls @ as directed IV .STK-MED ONE Stop: 12/20/17 13:07 Last Admin: 12/20/17 13:25 Dose: Not Given Oxytocin 10 unit/ Lactated (Ringer's) 1,001 mls @ 12.01 mls/hr IV TITRATE SRAVANI; 2 MUNITS/MIN PRN Reason: Protocol - Problem List & Annotations (1) Normal delivery at term SNOMED Code(s): 68903725 Code(s): O80 - ENCOUNTER FOR FULL-TERM UNCOMPLICATED DELIVERY Status: Acute Current Visit: Yes (2) 38 weeks gestation of SNOMED Code(s): 84670848 Code(s): Z3A.38 - 38 WEEKS GESTATION OF Status: Acute Current Visit: Yes (3) Cholelithiasis SNOMED Code(s): 876775225 Code(s): K80.20 - CALCULUS OF GALLBLADDER W/O CHOLECYSTITIS W/O OBSTRUCTION Status: Acute Current Visit: Yes (4) Hemorrhoid SNOMED Code(s): 36121877 Code(s): K64.9 - UNSPECIFIED HEMORRHOIDS Status: Acute Current Visit: Yes (5) Rh negative status during , third trimester, single gestation SNOMED Code(s): 464781743 Code(s): O09.893 - SUPERVISION OF OTHER HIGH RISK PREGNANCIES, THIRD TRIMESTER; Z67.91 - UNSPECIFIED BLOOD TYPE, RH NEGATIVE Status: Acute Current Visit: Yes - Problem List Review Problem List Initiated/Reviewed/Updated: No - My Orders Last 24 Hours: My Active Orders 12/20/17 12:56 Patient Status Manage Transfer [TRANSFER] Routine 12/20/17 12:57 Resuscitation Status Routine 12/20/17 13:17 Activity as Tolerated [RC] PFP Communication Order [RC] ASDIRECTED Notify Provider [RC] PFP Notify Provider [RC] PRN Peripheral IV Care [RC] Q2HR Vital Signs [RC] 04,12,20 Calcium Carbonate [Tums] 1,000 mg PO Q2H PRN Lidocaine 1% [Xylocaine 1%] 50 ml INJECT ONETIME PRN Sodium Chloride 0.9% [Saline Flush] 10 ml FLUSH ASDIRECTED PRN Electronic Heart Tones Ext w TOCO [WOMSER] Routine Electronic Heart Tones Internal [WOMSER] Per Unit Routine Peripheral IV Insertion Adult [OM.PC] Routine 12/20/17 13:30 Lactated Ringers [Ringers, Lactated] 1,000 ml IV ASDIRECTED Oxytocin/Lactated Ringers [Pitocin in LR 10 Units/1,000 ML] 10 unit in 1,000 ml IV .CONTINUOUS 12/20/17 13:45 Oxytocin/Lactated Ringers [Pitocin in LR 10 Units/1,000 ML] 10 unit in 1,000 ml IV TITRATE 12/20/17 Dinner Regular Diet [DIET] - Plan Plan:: Patient was seen, examined by me and discussed with the student. Brief History: [facility] LIVE . L/D Delivery Note. Patient Name: JAIRO DEL RIOGAedical Record Number: [id number]. Date of : Patient Status: Inpatient. Attending Provider: Cisco Kidd Number: [id number]. Date: 12/20/17 19:23Initialization Date: 12/20/17 19:23. L & D Note. - General Info. Date of Service: 12/20/17. Mother's Due Date: 12/30/17. - Delivery Note. Labor: Spontaneous, Augmented by ARM. Cervical Ripening Method: Oxytocin. Delivery Outcome: Livebirth (Female liveborn right occiput anterior and delivered at 1912 hrs. Thursday12/20/17 Apgars 8/9. Weight 30 /4/60 grams/7 lbs. 10 oz.). Delivery Method: Spontaneous Vaginal Delivery-Single. Delivery Mode: Spontaneous. Type of Forceps Used: NA. Presentation: Right Occiput Anterior (EFRAIN). Nuchal Cord: None. Prep: Povidone-Iodine (Betadine. Anesthesia Type: Epidural. Episiotomy Type: None. Laceration: None. Placenta: Intact, Spontaneous (Delivery at 1917 hrs. Thursday Rdz examined and intact discarded). Cord: 3 Vessels. Estimated Blood Loss: 250. Resuscitation Needed: No. [place]: Suctioned, Bulb Syringe, Stimulated, Warmed, [place] Used, Warmer Used. Provider: Cisco Kidd. Score 1 min: 8. Score 5 min: 9. - Patient Data. Vitals - Most Recent: Last Vital Signs. Temp 98.4 F 12/20/17 13:00. Pulse 89 12/20/17 17:51. Resp 20 12/20/17 17:51. BP 122/68 12/20/17 17:51. Pulse Ox. Weight - Most Recent: 217 lb. I&O - Last 24 Hours: Intake & Output. 12/20/1801. 06:5914:5922:59. Intake [id number]. [id number]. Lab Results Last 24 Hours: Laboratory Results - last 24 hr. Range/Units. 13:28. WBC 8.09 (3.98-10.04) K/mm3. RBC 4.28 (3.98-5.22) M/mm3. Hgb 11.0 L (11.2-15.7) gm/L. Hct 33.5 L (34.1-44.9) %. MCV 78.3 L ( 79.4-94.8) fl. MCH 25.7 (25.6-32.2) pg. MCHC 32.8 (32.2-35.5) g/dl. RDW Std Deviation 43.0 (36.4-46.3) fL. Plt Count 281 (182-369) K/mm3. MPV 10.4 ( 9.4-12.3) fl. Neut % (Auto) 78.2 H (34.0-71.1) %. Lymph % (Auto) 13.7 L ( 19.3-51.7) %. Clinch % (Auto) 5.7 (4.7-12.5) %. Eos % (Auto) 1.4 (0.7-5.8). Baso % (Auto) 0.4 (0.1-1.2) %. Neut # (Auto) 6.33 H (1.56-6.13) K/mm3. Lymph # (Auto) 1.11 L (1.18-3.74) K/mm3. Clinch # (Auto) 0.46 H (0.24-0.36) K/ mm3. Eos # (Auto) 0.11 (0.04-0.36) K/mm3. Baso # (Auto) 0.03 (0.01-0.08) K/ mm3. Med Orders - Current: Current Medications. Calcium Carbonate/Glycine ( Tums) 1,000 mg PO Q2H PRN. PRN Reason: Indigestion. Diphenhydramine HCl ( Benadryl) 25 mg IVPUSH Q6H PRN. PRN Reason: Pruritis. Ephedrine Sulfate ( Ephedrine Sulfate) 5 mg IVPUSH ASDIRECTED PRN. PRN Reason: Hypotension. Fentanyl (Sublimaze) 100 mcg EPIDUR ONETIME PRN. PRN Reason: Pain. Last Admin : 12/20/17 17:27 Dose: 100 mcg. Fentanyl/Bupivacaine HCl (Fentanyl/Bupivacaine /Ns 2 Mcg-0.125% 100 Ml) 100 ml EPIDUR ASDIRECTED [facility]. Last Admin: 12/20/17 17 :27 Dose: 100 ml. Lactated Ringer's (Ringers, Lactated) 1,000 mls @ 100 mls/ hr IV ASDIRECTED [facility]. Last Admin: 12/20/17 13:25 Dose: 100 mls/hr. Oxytocin/ Lactated Ringer's (Pitocin In Lr 10 Units/1,000 Ml) 10 unit in 1,000 mls @ 500 mls/hr IV .CONTINUOUS SRAVANI. Oxytocin/Lactated Ringer's (Pitocin In Lr 10 Units/1 ,000 Ml) 10 unit in 1,000 mls @ 12 mls/hr IV TITRATE SRAVANI. Last Infusion: 12/20 15:32 Dose: 48 mls/hr. Lidocaine HCl (Xylocaine 1%) 50 ml INJECT ONETIME PRN. PRN Reason: Breakthrough Pain. Ondansetron HCl (Zofran) 4 mg IVPUSH ONETIME PRN. PRN Reason: Nausea/Vomiting. Sodium Chloride (Saline Flush) 10 ml FLUSH ASDIRECTED PRN. PRN Reason: Keep Vein Open. Last Admin: 12/20/17 13: 25 Dose: 10 ml. Discontinued Medications. Lactated Ringer's (Ringers, Lactated) Confirm Administered Dose 1,000 mls @ as directed .ROUTE .STK-MED ONE. Stop: 12/20/17 13:07. Last Admin: 12/20/17 13:25 Dose: Not Given. Oxytocin/Lactated Ringer's (Pitocin In Lr 10 Units/1,000 Ml) Confirm Administered Dose 10 unit in 1,000 mls @ as directed IV .STK-MED ONE. Stop: 13:07. Last Admin: 12/20/17 13:25 Dose: Not Given. Oxytocin 10 unit/ Lactated (Ringer's) 1,001 mls @ 12.01 mls/hr IV TITRATE SRAVANI; 2 MUNITS/MIN. PRN Reason: Protocol. - Problem List & Annotations. (1) Normal delivery at term. SNOMED Code(s): 57967493. Code(s): O80 - ENCOUNTER FOR FULL-TERM UNCOMPLICATED DELIVERY Status: Acute Current Visit: Yes. (2) 38 weeks gestation of . SNOMED Code(s): 41436111. Code(s): Z3A.38 - 38 WEEKS GESTATION OF Status: Acute Current Visit: Yes. (3) Cholelithiasis. SNOMED Code(s): 130222354. Code(s): K80.20 - CALCULUS OF GALLBLADDER W/O CHOLECYSTITIS W/O OBSTRUCTION Status: Acute Current Visit: Yes. (4) Hemorrhoid. SNOMED Code(s): 42887170. Code(s): K64.9 - UNSPECIFIED HEMORRHOIDS Status: Acute Current Visit: Yes. (5) Rh negative status during , third trimester, single gestation. SNOMED Code(s): 667205169. Code(s): O09.893 - SUPERVISION OF OTHER HIGH RISK PREGNANCIES, THIRD TRIMESTER; Z67.91 - UNSPECIFIED BLOOD TYPE, RH NEGATIVE Status: Acute Current Visit: Yes. - Problem List Review. Problem List Initiated/Reviewed/ Updated: No. - My Orders. Last 24 Hours: My Active Orders. 12/20/17 12:56. Patient Status Manage Transfer [TRANSFER] Routine. 12/20/17 12:57. Resuscitation Status Routine. 12/20/17 13:17. Activity as Tolerated [RC] PFP. Communication Order [RC] ASDIRECTED. Notify Provider [RC] PFP. Notify Provider [RC] PRN. Peripheral IV Care [RC] Q2HR. Vital Signs [RC] 04,12,20. Calcium Carbonate [Tums] 1,000 mg PO Q2H PRN. Lidocaine 1% [Xylocaine 1%] 50 ml INJECT ONETIME PRN. Sodium Chloride 0.9% [Saline Flush] 10 ml FLUSH ASDIRECTED PRN. Electronic Heart Tones Ext w TOCO [WOMSER] Routine. Electronic Heart Tones Internal [WOMSER] Per Unit Routine. Peripheral IV Insertion Adult [OM.PC] Routine. 12/20/17 13:30. Lactated Ringers [Ringers, Lactated] 1,000 ml IV ASDIRECTED. Oxytocin/Lactated Ringers [Pitocin in LR 10 Units/1,000 ML] 10 unit in 1,000 ml IV .CONTINUOUS. 12/20/17 13:45. Oxytocin/ Lactated Ringers [Pitocin in LR 10 Units/1,000 ML] 10 unit in 1,000 ml IV TITRATE. 12/20/17 Dinner. Regular Diet [DIET]. - Plan. Plan:: Patient was seen, examined by me and discussed with the student. - Discharge Data Discharge Date: 12/21/17 Discharge Disposition: Home, Self-Care 01 Condition: Good - Discharge Diagnosis/Problem(s) (1) Normal delivery at term SNOMED Code(s): 48511918 ICD Code: O80 - ENCOUNTER FOR FULL-TERM UNCOMPLICATED DELIVERY Status: Acute Current Visit: Yes (2) 38 weeks gestation of SNOMED Code(s): 56782248 ICD Code: Z3A.38 - 38 WEEKS GESTATION OF Status: Acute Current Visit: Yes (3) Cholelithiasis SNOMED Code(s): 771714536 ICD Code: K80.20 - CALCULUS OF GALLBLADDER W/O CHOLECYSTITIS W/O OBSTRUCTION Status: Acute Current Visit: Yes Qualifiers: Cholelithiasis location: gallbladder Cholecystitis acuity: chronic Biliary obstruction: without biliary obstruction (4) Hemorrhoid SNOMED Code(s): 75702377 ICD Code: K64.9 - UNSPECIFIED HEMORRHOIDS Status: Acute Current Visit: Yes Qualifiers: Hemorrhoid type: other Qualified Code(s): K64.8 - Other hemorrhoids (5) Rh negative status during , third trimester, single gestation SNOMED Code(s): 049694126 ICD Code: O09.893 - SUPERVISION OF OTHER HIGH RISK PREGNANCIES, THIRD TRIMESTER; Z67.91 - UNSPECIFIED BLOOD TYPE, RH NEGATIVE Status: Acute Current Visit: Yes - Patient Summary/Data Complications: None Consults: none Hospital Course: uneventful - Patient Instructions Diet: Regular Diet as Tolerated Driving: Do Not Drive (48 hours) Showering/Bathing: May Shower, No Tub Bathing/Swimming (M6 weeks) Notify Provider of: Fever, Increased Pain, Swelling and Redness, Drainage, Nausea and/or Vomiting - Discharge Plan Home Medications: Home Meds Ferrous Sulfate 325 mg PO DAILY 12/20/17 [History] Pnv No.95/Ferrous Fum/Folic AC [ Multivitamin Tablet] 1 each PO DAILY [History] Acetaminophen [Tylenol] 650 mg PO Q4H PRN tablet 12/21/17 [Rx] Docusate Sodium [Colace] 100 mg PO BID PRN cap 12/21/17 [Rx] Hydrocortisone Acetate [Anucort-HC] 25 mg RECTAL BID PRN supp 12/21/17 [Rx] Ibuprofen [IJD: Ibuprofen] 600 mg PO Q4H PRN tablet 12/21/17 [Rx] Lanolin [Lansinoh HPA] 1 applic TOP ASDIRECTED PRN tube 12/21/17 [Rx] Referrals: Taqueria Tomlinson MD [Physician] - (2 weeks) - Discharge Summary/Plan Comment DC Time >30 min.: No - Patient Data Vitals - Most Recent: Last Vital Signs Temp 97.7 F 12/21/17 07:32 Pulse 66 12/21/17 07:32 Resp 20 12/21/17 07:32 BP 130/75 12/21/17 07:32 Pulse Ox 97 12/21/17 05:50 Weight - Most Recent: 217 lb I&O - Last 24 hours: Intake & Output 12/20/17 12/21/17 12/21/17 22:59 06:59 14:59 Intake Total 1000 Balance 1000 Lab Results - Last 24 hrs: Laboratory Results - last 24 hr 12/20/17 Range/Units 13:28 WBC 8.09 (3.98-10.04) K/mm3 RBC 4.28 (3.98-5.22) M/mm3 Hgb 11.0 L (11.2-15.7) gm/L Hct 33.5 L (34.1-44.9) % MCV 78.3 L (79.4-94.8) fl MCH 25.7 (25.6-32.2) pg MCHC 32.8 (32.2-35.5) g/dl RDW Std Deviation 43.0 (36.4-46.3) fL Plt Count 281 (182-369) K/mm3 MPV 10.4 (9.4-12.3) fl Neut % (Auto) 78.2 H (34.0-71.1) % Lymph % (Auto) 13.7 L (19.3-51.7) % Clinch % (Auto) 5.7 (4.7-12.5) % Eos % (Auto) 1.4 (0.7-5.8) Baso % (Auto) 0.4 (0.1-1.2) % Neut # (Auto) 6.33 H (1.56-6.13) K/mm3 Lymph # (Auto) 1.11 L (1.18-3.74) K/mm3 Clinch # (Auto) 0.46 H (0.24-0.36) K/mm3 Eos # (Auto) 0.11 (0.04-0.36) K/mm3 Baso # (Auto) 0.03 (0.01-0.08) K/mm3 Med Orders - Current: Current Medications Acetaminophen (Tylenol) 650 mg PO Q4H PRN PRN Reason: mild pain or fever Last Admin: 12/21/17 02:59 Dose: 650 mg Benzocaine/Menthol (Dermoplast Pain Relief [place]) 0 gm TOP ASDIRECTED PRN PRN Reason: Perineal Comfort Measure Last Admin: 12/20/17 21:07 Dose: 1 canister Docusate Sodium (Colace) 100 mg PO BID PRN PRN Reason: Constipation Emollient Ointment (Lansinoh Hpa) 0 gm TOP ASDIRECTED PRN PRN Reason: Sore Nipples Last Admin: 12/20/17 21:06 Dose: 1 tube Hydrocortisone Acetate (Anucort-Hc) 25 mg RECTAL BID PRN PRN Reason: Hemorrhoid pain Ibuprofen (Motrin) 600 mg PO Q4H PRN PRN Reason: Mild pain or fever Last Admin: 12/21/17 05:54 Dose: 600 mg Witch Jane (Tucks) 1 pad TOP ASDIRECTED PRN PRN Reason: Hemorrhoid pain Last Admin: 12/20/17 21:07 Dose: 1 box Discontinued Medications Acetaminophen (Tylenol) 650 mg PO Q4H PRN PRN Reason: mild pain or fever Benzocaine/Menthol ([facility] [place]) 0 gm TOP ASDIRECTED PRN PRN Reason: Perineal Comfort Measure Calcium Carbonate/Glycine (Tums) 1,000 mg PO Q2H PRN PRN Reason: Indigestion Diphenhydramine HCl (Benadryl) 25 mg IVPUSH Q6H PRN PRN Reason: Pruritis Docusate Sodium (Colace) 100 mg PO BID PRN PRN Reason: Constipation Emollient Ointment (Lansinoh Hpa) 0 gm TOP ASDIRECTED PRN PRN Reason: Sore Nipples Ephedrine Sulfate (Ephedrine Sulfate) 5 mg IVPUSH ASDIRECTED PRN PRN Reason: Hypotension Fentanyl (Sublimaze) 100 mcg EPIDUR ONETIME PRN PRN Reason: Pain Last Admin: 12/20/17 17:27 Dose: 100 mcg Fentanyl/Bupivacaine HCl (Fentanyl/Bupivacaine/Ns 2 Mcg-0.125% 100 Ml) 100 ml EPIDUR ASDIRECTED SRAVANI Last Admin: 12/20/17 17:27 Dose: 100 ml Hydrocortisone Acetate (Anucort-Hc) 25 mg RECTAL BID PRN PRN Reason: Hemorrhoid pain Hydrocortisone Acetate (Anucort-Hc) 25 mg RECTAL BID PRN PRN Reason: Hemorrhoids Lactated Ringer's (Ringers, Lactated) Confirm Administered Dose 1,000 mls @ as directed .ROUTE .[facility] ONE Stop: 12/20/17 13:07 Last Admin: 12/20/17 13:25 Dose: Not Given Oxytocin/Lactated Ringer's (Pitocin In Lr 10 Units/1,000 Ml) Confirm Administered Dose 10 unit in 1,000 mls @ as directed IV .[facility] ONE Stop: 12/20/17 13:07 Last Admin: 12/20/17 13:25 Dose: Not Given Lactated Ringer's (Ringers, Lactated) 1,000 mls @ 100 mls/hr IV ASDIRECTED SRAVANI Last Admin: 12/20/17 13:25 Dose: 100 mls/hr Oxytocin/Lactated Ringer's (Pitocin In Lr 10 Units/1,000 Ml) 10 unit in 1,000 mls @ 500 mls/hr IV .CONTINUOUS [facility] Oxytocin 10 unit/ Lactated (Ringer's) 1,001 mls @ 12.01 mls/hr IV TITRATE SRAVANI; 2 MUNITS/MIN PRN Reason: Protocol Oxytocin/Lactated Ringer's (Pitocin In Lr 10 Units/1,000 Ml) 10 unit in 1,000 mls @ 12 mls/hr IV TITRATE SRAVANI Last Infusion: 12/20/17 15:32 Dose: 48 mls/hr Lactated Ringer's (Ringers, Lactated) 1,000 mls @ 100 mls/hr IV ASDIRECTED [facility] Oxytocin/Lactated Ringer's (Pitocin In Lr 10 Units/1,000 Ml) 10 unit in 1,000 mls @ 100 mls/hr IV .CONTINUOUS [facility] Ibuprofen (Motrin) 600 mg PO Q4H PRN PRN Reason: Mild pain or fever Lidocaine HCl (Xylocaine 1%) 50 ml INJECT ONETIME PRN PRN Reason: Breakthrough Pain Nalbuphine HCl (Nubain) 10 mg IVPUSH Q2H PRN PRN Reason: Pain (moderate 4-6) Ondansetron HCl (Zofran) 4 mg IVPUSH ONETIME PRN PRN Reason: Nausea/Vomiting Ondansetron HCl (Zofran) 4 mg IVPUSH Q4H PRN PRN Reason: Nausea/Vomiting Oxytocin (Pitocin) 10 unit IM ONETIME ONE Stop: 12/20/17 19:35 Sodium Chloride (Saline Flush) 10 ml FLUSH ASDIRECTED PRN PRN Reason: Keep Vein Open Last Admin: 12/20/17 13:25 Dose: 10 ml Sodium Chloride (Saline Flush) 10 ml FLUSH ASDIRECTED PRN PRN Reason: Keep Vein Open Sofia Lara (Tucks) 1 pad TOP ASDIRECTED PRN PRN Reason: Hemorrhoid pain *Q Meaningful Use (DIS) - VTE *Q VTE Criteria *Q: - Stroke *Q Stroke Criteria *Q: - AMI *Q AMI Criteria *Q:
== END 2017-12-21 19:40 | disposition home or self-care (01) | DRG 560 ==
LOC: JD.OB 10:33 → UNDOADMOB 10:33 → JD.OB 12:18 → OBSVTOIN 19:12 → JD.MS 12-21 14:15 → JD.OB 12-21 14:45
PROVIDERS: ADMIT Obstetrics & Gynecology; ATTEND Obstetrics & Gynecology
PROC: 10E0XZZ Delivery of Products of Conception, External Approach (ICD-10-PCS; principal; 2017-12-20)
PROC: 10907ZC Drainage of Amniotic Fluid, Therapeutic from Products of Conception, Via Natural or Artificial Opening (ICD-10-PCS; 2017-12-20)
PROC: 00HU33Z Insertion of Infusion Device into Spinal Canal, Percutaneous Approach (ICD-10-PCS; 2017-12-20)
PROC: 3E0R3BZ Introduction of Anesthetic Agent into Spinal Canal, Percutaneous Approach (ICD-10-PCS; 2017-12-20)
DX: O99.62 Diseases of the digestive system complicating childbirth (principal); O75.89 Other specified complications of labor and delivery; K64.9 Unspecified hemorrhoids; Z3A.38 38 weeks gestation of pregnancy; Z37.0 Single live birth; Z87.891 Personal history of nicotine dependence
CPT/HCPCS: 36415; 51701; 59409; 85025; 85461; 86850; 86900; 86901; A9270-GY; J2590; J2790; J3010; J7050; J7120